=== PATIENT | female | born 1965 | race Two or more races ===

== ENCOUNTER 2016-05-12 07:00 | Inpatient (IN) | payer OTHER ==
[~2016-05-12] VITALS: Ht 162.6 cm; Wt 93.0 kg
[2016-05-12] VITALS (9 sets, daily range): BP systolic 115–146; BP diastolic 56–84
[~2016-05-12 07:00] MED LIST: VIT D PO; ceFAZolin 2gm/50ml Premix 50 ML IVPB ONE
[2016-05-12] MEDS ORDERED: IBUPROFEN600 MG ORAL (10:42)
[2016-05-12] MEDS ORDERED: LR 1000ml 1,000 ML IVLG SCH (12:38)
--- NOTE | 2016-05-12 12:38 | Anethesia Preoperative Eval ---
Anesthesia Pre-op PMH/ROS General Date of Evaluation: May 12, 2016 Time of Evaluation: 14:17 Anesthesiologist: Phong ASA Score: ASA 2 Mallampati Score Class I : Soft palate, uvula, fauces, pillars visible Class II: Soft palate, uvula, fauces visible Class III: Soft palate, base of uvula visible Class IV: Only hard plate visible Mallampati Classification: Class II Surgeon: Miroslava Diagnosis: Neck Pain Surgical Procedure: ACDF C5-6, C6-7 Anesthesia History: none Family History: no anesthesia problems Allergies: Coded Allergies: No Known Allergies (Unverified , 05/11/16) Medications: see eMAR Past Medical History Cardiovascular: Reports: other - HL Other: obesity - BMI 35 PSxH Narrative: Cholecystectomy Anesthesia Pre-op Phys. Exam Physician Exam Last Vital Signs Date Time Temp Pulse Resp B/P Pulse Ox O2 Delivery O2 Flow Rate FiO2 05/12/16 10:55 97.0 81 17 115/56 98 Room Air Constitutional: NAD Neurologic: CN 2-12 intact Cardiovascular: RRR Respiratory: CTA Gastrointestinal: S/NT/ND Airway Exam Mallampati Score: Class II MO: limited ROM: limited Teeth: intact Anesthesia Pre-op A/P Labs Urine Test Test 05/12/16 10:35 Urine HCG, Qualitative Negative Risk Assessment & Plan Assessment: ASA 2 Plan: GA, BIS, Glidescope Status Change Before Surgery: No Pre-Antibiotics Dru Grams Ancef IV Given Within 1 Hr of Incision: Yes Time Given: 14:36 Rei Darling MD May 12, 2016 12:38
--- NOTE | 2016-05-12 12:39 | Immediate Post-Op Evaluation ---
Immediate Post-Op Evalulation Immediate Post-Op Evalulation Procedure: ACDF C5-6, C6-7 Date of Evaluation: May 12, 2016 Time of Evaluation: 17:45 IV Fluids: 1000 LR Blood Products: 0 Estimated Blood Loss: 100 Urinary Output: 0 Blood Pressure Systolic: 127 Blood Pressure Diastolic: 65 Pulse Rate: 111 Respiratory Rate: 16 O2 Sat by Pulse Oximetry: 94 Temperature (Fahrenheit): 98 Pain Score (1-10): 3 Nausea: No Vomiting: No Complications 0 Patient Status: awake, reacts, patent, extubated, none Hydration Status: adequate Dru Grams Ancef IV Given Within 1 Hr of Incision: Yes Rei Darling MD May 12, 2016 12:39
[2016-05-12] MEDS ORDERED: Oxycodone/Acetaminophen 5-325 ORAL PRN (12:45)
[2016-05-12] MEDS ORDERED: Metoclopramide 10mg/2ml Inj IVP PRN (12:45)
[2016-05-12] MEDS ORDERED: Atropine Inj 1mg/10ml Syr IV PRN (12:45)
[2016-05-12] MEDS ORDERED: LORazepam Inj 2mg/ml 1ml IV PRN (12:45)
[2016-05-12] MEDS ORDERED: Labetalol 5mg/ml 20ml vial IV PRN (12:45)
[2016-05-12] MEDS ORDERED: Ketorolac 30mg Inj IV PRN (12:45)
[2016-05-12] MEDS ORDERED: Midazolam 2mg/2ml Inj IVP PRN (12:45)
[2016-05-12] MEDS ORDERED: DiphenhydrAMINE 50mg/ml Inj IVP PRN (12:45)
[2016-05-12] MEDS ORDERED: Meperidine 25mg/ml Inj IV PRN (12:45)
[2016-05-12] MEDS ORDERED: Norco 7.5mg/325mg tab ORAL PRN (12:45)
[2016-05-12] MEDS ORDERED: Ketorolac 60mg Inj IV PRN (12:45)
[2016-05-12] MEDS ORDERED: Hydromorphone 0.5mg/0.5ml inj IVP PRN (12:45)
[2016-05-12] MEDS ORDERED: Norco 5mg/325mg tab ORAL PRN ×2 (12:45→14:15)
[2016-05-12] MEDS ORDERED: fentaNYL 100 mcg/2 mL IV PRN (12:45)
[2016-05-12] MEDS ORDERED: Acetaminophen (Non formulary) 1,000 MG/100 ML ML IV ONE (13:00)
[2016-05-12] MEDS ORDERED: Thrombin 5000 units TOPIC ONE (13:29)
[2016-05-12] MEDS ORDERED: Vancomycin 1gm inj IVPB ONE (13:30)
[2016-05-12] MEDS ORDERED: Bupivacaine w/Epi 0.25% 30ml Vial INJ ONE (13:30)
[2016-05-12] MEDS ORDERED: Bacitracin 50000 Units Vial ONE (13:30)
[2016-05-12] MEDS ORDERED: Sterile Water Irrig 1000ml IRRIG ONE (14:00)
[2016-05-12] MEDS ORDERED: fentaNYL 100 mcg/2 mL IV ONE (14:00)
[2016-05-12] MEDS ORDERED: NS Irrig 1000ml ONE (14:00)
[2016-05-12] MEDS ORDERED: LR 1000ml ONE (14:00)
[2016-05-12] MEDS ORDERED: Dexamethasone 4mg/ml vial ONE (14:00)
[2016-05-12] MEDS ORDERED: Zemuron 50mg/5ml Inj IV ONE (14:00)
[2016-05-12] MEDS ORDERED: Neostigmine 1mg/ml 10ml Inj ONE (14:00)
[2016-05-12] MEDS ORDERED: fentaNYL 250mcg/5ml ONE (14:00)
[2016-05-12] MEDS ORDERED: Glycopyrrolate 0.2mg/ml 1ml Vial ONE (14:00)
[2016-05-12] MEDS ORDERED: Propofol 10mg/ml 100ml btl IV ONE (14:00)
[2016-05-12] MEDS ORDERED: Lidocaine 1% MPF 10mg/ml 5ml ONE (14:00)
--- NOTE | 2016-05-12 14:06 | Pre-Procedure Note/Attestation ---
Pre-Procedure Note/Attestation Complete Prior to Procedure Procedure Narrative: acdf c56 and c67 Indications for Procedure Pre-Operative Diagnosis: hnp with radiculopathy Attestation I attest that I discussed the nature of the procedure; its benefits; risks and complications; and alternatives (and the risks and benefits of such alternatives ), prior to the procedure, with the patient (or the patient's legal assistance representative). I attest that, if there was a reasonable possibility of needing a blood transfusion, the patient (or the patient's legal assistance representative) was given the [facility] standardized written summary, pursuant to the Roly Brandi Blood Safety Act ([place] Health and Safety Code # 1645, as amended). I attest that I re-evaluated the patient just prior to the surgery and that there has been no change in the patient's H&P, except as documented below: FREDDY MCCRARY May 12, 2016 14:06
[2016-05-12] MEDS ORDERED: HYDROmorphone 1mg/ml Carpuject IVP PRN (14:15)
[2016-05-12] MEDS ORDERED: Naloxone 0.4mg/ml Inj IVP PRN (14:15)
[2016-05-12] MEDS ORDERED: HYDROmorphone 1mg/ml Carpuject SUBQ PRN (14:15)
[2016-05-12] MEDS: D5 1/2NS 1,000 ML IV SCH (21:02)
[2016-05-12] MEDS: Docusate 100mg cap ORAL SCH (21:02)
[2016-05-13 00:35] VITALS: BP 116/63
[2016-05-13 04:54] VITALS: BP 102/64
[2016-05-13] MEDS: D5 1/2NS 1,000 ML IV SCH ×2 (05:57→22:58)
[2016-05-13] MEDS: Norco 7.5mg/325mg tab ORAL PRN ×4 (06:03→17:46)
[2016-05-13 08:00] VITALS: BP 119/67
[2016-05-13] MEDS: Docusate 100mg cap ORAL SCH ×2 (09:20→17:46)
--- NOTE | 2016-05-13 09:35 | 48 Hour Post Anesthesia Eval ---
Post Anesthesia Evaluation Procedure: ACDF C5-6, C6-7 Date of Evaluation: May 13, 2016 Time of Evaluation: 09:34 Blood Pressure Systolic: 108 0: 62 Pulse Rate: 64 Respiratory Rate: 20 Temperature (Fahrenheit): 97.4 O2 Sat by Pulse Oximetry: 99 Airway: patent Nausea: No Vomiting: No Pain Intensity: 2 Hydration Status: adequate Cardiopulmonary Status: stable Mental Status/LOC: patient returned to baseline Follow-up Care/Observations: n/a Post-Anesthesia Complications: none Follow-up care needed: N/A DICK BOOTH M.D. May 13, 2016 09:35
[2016-05-13 12:00] VITALS: BP 109/69
[2016-05-13] MEDS ORDERED: Influenza Virus Vaccine 0.5ml IM ONE (16:00)
[2016-05-13 16:02] VITALS: BP 112/60
[2016-05-13 20:00] VITALS: BP 110/58
[2016-05-14] VITALS: BP 106/64
[2016-05-14 04:00] VITALS: BP 111/66
[2016-05-14 08:00] VITALS: BP 124/64
[2016-05-14] MEDS: Docusate 100mg cap ORAL SCH (08:35)
[2016-05-14] MEDS: Norco 7.5mg/325mg tab ORAL PRN (08:35)
[2016-05-14] MEDS ORDERED: NORCO 5-325 TA1 EACH ORAL (10:38)
[2016-05-14] MEDS ORDERED: SOMA350 MG PO (10:38)
[2016-05-14] MEDS ORDERED: Influenza Virus Vaccine 0.5ml IM ONE (11:00)
[2016-05-14] MEDS ORDERED: D5 1/2NS 1000ml IV ONE (11:44)
[2016-05-14] MEDS ORDERED: Tubing IV Secondary IV ONE (11:44)
--- NOTE | 2016-05-15 12:42 | Discharge Summary ---
Discharge Summary Hospital Course Date of Admission May 12, 2016 at 10:15 Date of Discharge May 14, 2016 at 11:45 Admitting Diagnosis HNP C5-C7 Reason for Hospitalization: neck pain, HNP C5/7, admitted for elective surgery HPI Karime Sanchez is a 51 year old female who was admitted on May 12, 2016 at 10 :15 for HNP with radiculopathy C5-C7 Procedures 05/12 - ACDF ( anterior cervical discectomy with fusion) C5-6, C 6-7 Hospital Course 51 y/old female with hx of HNP with radiculopathy C5-C7 admitted for elective surgery Patietn undergone elective surgery 05/12 ACDF C5-6, C6.7 surgery followed course of recovery uneventful pain management , pain controlled PT eval and Rx , able to ambulate no focal weakens bowel regimen, had BM voided freely tolerates diet stable for discharge and follow up with surgeon Discharge Medications Continued Medications: Carisoprodol* (Soma*) 350 Mg Tablet 350 MG PO TID, TAB Hydrocodone Bit/Acetaminophen 5-325* ([place] 5-325*) 1 Each Tablet 1 TAB ORAL Q6H PRN for For Pain, #10 TAB 0 Refills Discharge Condition Upon Discharge: improving, stable Discharge Disposition Patient was discharged to Home (01) Discharge Diagnoses: (1) HNP (herniated nucleus pulposus), cervical (2) Radiculopathy (3) S/P cervical discectomy Alesia Miller NP (V[place]te[place]) May 15, 2016 12:42
--- NOTE | 2016-05-16 03:58 | Operative Note - Dictated ---
DATE OF OPERATION: 05/12/2016 PREOPERATIVE DIAGNOSIS: C5-C6 and C6-C7 disc herniation/disc protrusion with right upper extremity myeloradiculopathy. POSTOPERATIVE DIAGNOSIS: C5-C6 and C6-C7 disc herniation/disc protrusion with right upper extremity myeloradiculopathy. PROCEDURE PERFORMED: 1. Interbody arthrodesis at C5-C6 and C6-C7. 2. Anterior cervical instrumentation at C5-C6 and C6-C7. 3. Anterior diskectomy and decompression of the spinal canal with partial vertebrectomy at C7 with anterior foraminotomy at C5-C6 and C6-C7. 4. Implantation of PEEK device at C5-C6 and C6-C7 with allograft and autograft. 5. Intraoperative use of fluoroscopy. 6. Intraoperative use of microscope. 7. SSEP/EMG/MEP. SURGEON: Avi [place] M.D. DOOR FURRING INSTALLER: Milton Sahu M.D. ANESTHESIA: General endotracheal anesthesia. ANESTHESIOLOGIST: Rei Darling M.D. EBL: 100 mL. IV ANTIBIOTICS: 2 g of Ancef. BACKGROUND INSTRUCTIONS: The patient is a pleasant female, who presented with neck pain and upper extremity myeloradiculopathy and pain, who failed nonoperative treatments. Options for above treatment was given. Risks, alternatives, and benefits were discussed with the patient. The patient wished to proceed. Risks include, but are not limited to anesthesia complications including , medical complications including liver, kidney, and cardiopulmonary deficits, bleeding, infection, dysphonia, dysphagia, hematoma of the neck, nerve root injury, paralysis, spinal cord injury, CSF leak, dural tear, fracture of the hardware, loosening of the hardware, need for revision, decompression, and fusion, swallowing difficulties, esophageal injury, tracheal injury, recurrent laryngeal nerve injury as well as other complications including compartment syndrome. The patient understood and wished to proceed. All the patient's questions were answered. Written and verbal consent was given. No guarantees were given. OPERATIVE FINDINGS: Herniated nucleus pulposus with protrusion at C5-C6 and C6-C7 with stenosis, spinal cord compression, and foraminal stenosis for the exiting C6 and C7 nerve roots. DESCRIPTION OF OPERATION: The patient was brought into the operating room supine on a stretcher. Appropriate IV lines were placed by the anesthesiologist. A 2 g of Ancef was administered. Surgical time-out was called. The patient was induced and intubated without complication. The patient was positioned on the operating room table. The neck was placed in neutral alignment. The arms were tucked by the side. All bony prominences were well padded as well as the four extremities. Neurophysiological leads were placed and recordings were done and remained stable throughout the case. Preoperative fluoroscopy revealed the planned incision to be over the C5, C6, and C7 vertebral bodies. The fluoroscopy showed the neck to be in adequate alignment. The neck was prepped and draped in the usual sterile fashion. At this point, myself and my assistant county attorney were prepped and gowned appropriately. An incision was carried out with a scalpel on the anterior right side of the neck in the crease of the neck. Hemostasis was achieved with bipolar cautery. The platysma was incised inline with the skin incision. Blunt dissection was carried out in the interval between the strap muscles and the sternocleidomastoid muscle. Superficial cervical fascia was dissected caudally as well as cephalad. Carotid pulse was palpated and found to be well lateral to the field of dissection. Deep cervical fascia was encountered. Once the deep cervical fascia was found, blunt dissection was carried out with [place] as well as finger dissection to find the prevertebral space. The longus coli was found on both sides of the spine. The longus coli was subperiosteally dissected off of the spine. At this point, retractors were set into place. Spinal needle was placed in the C5-C6 and C6-C7 interspaces with positively identified via fluoroscopy. The intraoperatively sterilely draped microscope was brought into the field. At this point, attention was diverted to doing the diskectomy at C5-C6. A scalpel was used to incise the anterior anulus with straight and curved curette as well as #2 and #3 pituitary rongeurs, a radical diskectomy was accomplished. Endplate cartilage was removed. Endplate bone was well preserved. A high-speed drill was used to remove the posterior aspect of C5 and C6 to the level of the posterior longitudinal ligament. With micro set #1 and micro set #2 curette, the PLL was removed. The spinal cord was decompressed with #1 and #2 Kerrison punches and anterior foraminotomy was done to release the exiting nerve roots at C5-C6 for a complete decompression of the foramina and complete decompression of the exiting C6 nerve roots. At this point, hemostasis was achieved with Gelfoam and FloSeal. Final check of the central canal, the lateral recess, and the foramina was done and the complete decompression was found to be excellent. Now, attention was diverted to the C6-C7 interspace. Retractors were set into place and were moved from the C5-C6 level to the C6-C7 level. A fresh scalpel was used to incise the anterior annulus. With pituitary rongeurs and straight and curved curette, a radical diskectomy was accomplished at C6-C7. A high-speed drill was used to do a partial vertebrectomy of C7 for a complete decompression of the spinal canal. Drilling was taken to the level of the posterior longitudinal ligament. With #1 and #2 micro set curette, the PLL was removed. With #1 and #2 Kerrison punches, the anterior foraminotomy was completed to completely decompress the exiting C7 nerve roots bilaterally. A check of the foramina, the lateral recess, and the central canal was done and a complete decompression was done and there was no further impingement. The posterior aspect of C7 was drilled for a complete decompression of the spinal canal and the spinal cord. At this point, attention was diverted to placing trials at C6-C7 and C5-C6 from the spinal element system. A #8 lordotic trial was found to be well fitting at C6-C7 and a #7 lordotic trial was found to be well fitting at C5-C6. Peek interbody devices were chosen and was packed with [place] putty as well as autologous bone, which was harvested from the vertebral bodies from C5, C6, and C7. At this point, the PEEK interbody device was tamped into place at C6-C7 with a #8 lordotic spinal elements PEEK cage. At C5-C6, a 7 mm in height lordotic PEEK cage was chosen and packed with autograft and Vero allograft and tamped into place at C5-C6. Both PEEK interbody devices had excellent apposition against the endplates and excellent lordosis at C5-C6 and C6-C7. There was no bleeding and hemostasis was achieved. A cervical plate from the [place] system was chosen and was placed in adequate lordosis. With 14 mm self-drilling screws, the anterior cervical plate was fixed onto the anterior surface of the C5, C6, and C7 vertebral bodies. Each screw had excellent purchase in the bone and was medialized appropriately. Each screw sat below the locking mechanism of the anterior cervical plate appropriately. At this point, SSEP, EMG, and MEP monitoring was done, and remained stable throughout the case. The surgery was done with the use of an intraoperatively sterilely draped microscope. Final AP and lateral fluoroscopy was done and all instrumentation was found to be in excellent position at C5-C6 and C6-C7. The wound was copiously irrigated multiple times before and after implantation of the instrumentation. Attention now was diverted to closure. The platysma was closed with 2-0 and 3-0 Vicryl sutures. The subdermal and subcuticular layers were closed with 3-0 Vicryl sutures. The skin was closed with Dermabond. Sterile dressing and tape were placed. The cervical collar was placed. The patient was extubated and taken to the recovery room in stable condition and found to be neurovascularly intact in the recovery room. Final EBL was 100 mL. Avi [place] M.D. DR: Nilda JOB#: [id number] CC: DONITA
--- NOTE | 2016-07-28 13:37 | Brief Operative Note ---
Immediate Post Operative Note Operative Note Pre-op Diagnosis: hnp with radiculopathy Procedure: cerv radic Post-op Diagnosis: same as pre-op Findings: consistent w/pre-op dx studies Surgeon: elvis Classification Inspector: hau Anesthesiologist: conner Anesthesia: general Specimen: none Complications: none Condition: stable Fluids: 1000cc Estimated Blood Loss: minimal Drains: none Implant(s) used?: Yes FREDDY MCCRARY Jul 28, 2016 13:37
--- NOTE | 2016-08-04 14:16 | Brief Operative Note ---
Immediate Post Operative Note Operative Note Pre-op Diagnosis: hnp with radiculopathy Procedure: cerv radic Post-op Diagnosis: liz Post-op Diagnosis: same as pre-op Findings: consistent w/pre-op dx studies Surgeon: elvis Jewellery Designer: hua Anesthesiologist: conner Anesthesia: general Specimen: none Complications: none Condition: stable Fluids: 1000cc Estimated Blood Loss: volume - 100cc Drains: none Implant(s) used?: No FREDDY MCCRARY Aug 04, 2016 14:15
== END 2016-05-14 11:45 | disposition home or self-care (01) | DRG 473 ==
LOC: SDSOVERFLO 10:15 → 3E 19:00
DX: M50.123 Cervical disc disorder at C6-C7 level with radiculopathy (principal)
CPT/HCPCS: 36415; 72040; 76001; 81025; 86850; 86900; 86901; 87081; 94003; 94150; G0378; J2405; J2710; Q2036